=== PATIENT | male | born 1995 | race Caucasian/White ===

== ENCOUNTER 2017-03-23 13:23 | Emergency (ER) | payer MEDICAID ==
[2015-07-27 10:00] VITALS: BMI 19.1
[~2017-03-23 13:23] MED LIST: PROBIOTIC1 EAC1 PO; ULTRAM50 MG PO; ZYRTEC10 MG PO
[2017-03-23 13:43] LABS: BASOPHILS 0.2 % (0-2); EOSINOPHILS 0.5 % (0-7); HEMATOCRIT 41.1 % (42.0-54.0); HEMOGLOBIN 14.6 g/dL (13.5-17.5); IMMATURE GRANULOCYTES 0.2 % (0-5); LYMPHOCYTES 34.9 % (15-50); MCH 31.3 pg (26.0-34.0); MCHC 35.5 g/dL (31.0-37.0); MCV 88.2 fL (80.0-100.0); MEAN PLATELET VOLUME 10.2 fL (7.4-10.4); MONOCYTES 5.2 % (2-11); PLATELET COUNT 336 10x3/uL (130-400); RBC 4.66 10x6/uL (4.20-6.10); RDW 12.2 % (11.5-14.5); WBC 4.2 10x3/uL (4.8-10.8)
[2017-03-23 14:14] LABS: ALBUMIN 4.7 g/dL (3.4-5.0); ALKALINE PHOSPHATASE 68 U/L (46-116); ALT (SGPT) 28 U/L (10-68); CALC OSMOLALITY 281 mosm/kg (275-300); CARBON DIOXIDE 24.8 mmol/L (21.0-32.0); CHLORIDE - SERUM 104 mmol/L (98-107); CREATININE - SERUM 1.1 mg/dL (0.6-1.3); GLUCOSE 135 mg/dL (74-106); PROTEIN - SERUM 7.5 g/dL (6.4-8.2); SODIUM 141 mmol/L (136-145); UREA NITROGEN 9 mg/dL (7-18); eGFR NON AFRICAN AMERICAN > 90 mL/min (90-120)
[2017-03-23 14:40] LABS: APPEARANCE HAZY (CLEAR); COLOR YELLOW (YELLOW)
[2017-03-23 14:41] LABS: BILIRUBIN NEGATIVE (NEGATIVE); GLUCOSE NEGATIVE (NEGATIVE); KETONE NEGATIVE (NEGATIVE); LEUKOCYTE ESTERASE NEGATIVE (NEGATIVE); NITRITE NEGATIVE (NEGATIVE); PROTEIN 1+ mg/dL (NEGATIVE); UROBILINOGEN NORMAL (NORMAL)
[2017-03-23 14:42] LABS: RED CELLS - URINE >50 /hpf (0-5)
[2017-03-23 14:43] LABS: BACTERIA FEW /hpf (NONE SEEN)
== END 2017-03-23 15:40 | disposition home or self-care (01) ==
LOC: D.ER 13:23
PROVIDERS: Emergency Medicine
DX: N23 Unspecified renal colic (principal); N20.1 Calculus of ureter; R11.2 Nausea with vomiting, unspecified

== ENCOUNTER → 2017-03-25 12:30 | Outpatient (CLI) | payer MEDICAID ==
[2015-07-27 10:00] VITALS: BMI 19.1
== END | disposition home or self-care (01) ==
LOC: D.RAD 12:30
DX: N20.0 Calculus of kidney (principal)

== ENCOUNTER 2019-02-22 21:56 | Emergency (ER) | payer MEDICAID ==
[~2019-02-22] VITALS: Ht 165.1 cm; Wt 50.9 kg
[2019-02-22 21:59] VITALS: Ht 165.1 cm; Wt 50.9 kg
[2019-02-22 22:39] LABS: BASOPHILS 0.2 % (0-2); EOSINOPHILS 0.2 % (0-7); HEMATOCRIT 38.7 % (42.0-54.0); HEMOGLOBIN 13.8 g/dL (13.5-17.5); IMMATURE GRANULOCYTES 0.2 % (0-5); LYMPHOCYTES 7.5 % (15-50); MCH 30.8 pg (26.0-34.0); MCHC 35.7 g/dL (31.0-37.0); MCV 86.4 fL (80.0-100.0); MEAN PLATELET VOLUME 9.5 fL (7.4-10.4); MONOCYTES 4.6 % (2-11); NEUTROPHILS 87.3 % (40-80); PLATELET COUNT 273 10x3/uL (130-400); RBC 4.48 10x6/uL (4.20-6.10); RDW 11.9 % (11.5-14.5); WBC 12.2 10x3/uL (4.8-10.8)
[2019-02-22 23:27] LABS: ALBUMIN 3.8 g/dL (3.4-5.0); ALKALINE PHOSPHATASE 67 U/L (46-116); ALT (SGPT) 23 U/L (10-68); BILIRUBIN - TOTAL 0.26 mg/dL (0.2-1.3); CALC OSMOLALITY 277 mosm/kg (275-300); CALCIUM 8.5 mg/dL (8.5-10.1); CARBON DIOXIDE 27.3 mmol/L (21.0-32.0); CHLORIDE - SERUM 104 mmol/L (98-107); CREATININE - SERUM 0.8 mg/dL (0.6-1.3); GLUCOSE 92 mg/dL (74-106); POTASSIUM - SERUM 3.9 mmol/L (3.5-5.1); PROTEIN - SERUM 6.8 g/dL (6.4-8.2); SODIUM 139 mmol/L (136-145); UREA NITROGEN 13 mg/dL (7-18); eGFR NON AFRICAN AMERICAN > 90 mL/min (90-120)
[2019-02-22 23:39] LABS: CKMB 0.5 U/L (0.0-3.6); CREATINE KINASE 128 UL (21-232); TROPONIN-I < 0.017 ng/mL (0.000-0.060)
[2019-02-23 00:20] VITALS: BP 140/86
== END 2019-02-23 00:19 | disposition home or self-care (01) ==
LOC: D.ER 21:56
PROVIDERS: Family Medicine
DX: R00.2 Palpitations (principal)